=== PATIENT | male | born 2000 | race Caucasian/White ===

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

== ENCOUNTER 2023-04-25 15:45 | Outpatient (CLI) | payer BC ==
--- NOTE | 2023-04-25 16:43 | XRAY Report ---
PROCEDURE: Finger(s) RT INDICATIONS: RIGHT THUMB PAIN TECHNIQUE: AP hand, 2 views of the first finger(s) acquired. COMPARISON: None. FINDINGS: Bones: Intra-articular fracture at the base of the first distal phalanx. Soft tissues: No suspicious soft tissue calcifications or masses. IMPRESSION: Intra-articular fracture at the base of the first distal phalanx. Reviewed by: Yasir Ochoa on 04/25/2023 4:42 PM PDT Approved by: Yasir Ochoa on 04/25/2023 4:42 PM PDT Station ID: [id number]
== END 2023-04-25 23:59 | disposition home or self-care (01) ==
LOC: DI.S 15:45
PROVIDERS: ATTEND Physician Assistant
DX: S62.521A Displaced fracture of distal phalanx of right thumb, initial encounter for closed fracture (principal)